=== PATIENT | male | born 1950 | race Caucasian/White ===

== ENCOUNTER 2023-03-29 16:14 | Emergency (ER) | payer OTHER, SELFPAY ==
[2023-03-29 16:21] VITALS: BP 95/60; PULSE 97; RESP 20; TEMP 36.9; O2SAT 95; BMI 18.1
--- NOTE | 2023-03-29 16:47 | XRR_ITS ---
PROCEDURE INFORMATION: Exam: XR Chest Exam date and time: 03/29/2023 4:55 PM Age: 73 years old Clinical indication: Cough and shortness of breath; Additional info: SOB TECHNIQUE: Imaging protocol: Radiologic exam of the chest. Views: 1 view. COMPARISON: No relevant prior studies available. FINDINGS: There is scarring in the right lung with superior traction of the right hilum with hilar fullness and right apical opacity. Findings are indeterminate and could be due to mass, adenopathy, consolidation, scarring, or a combination of these. Pleuroparenchymal opacity in the right base has the appearance of some parenchymal consolidation and pleural effusion. The left lung appears hyperinflated but no definite acute findings. Scarring is suspected superiorly on the left as well. Heart size is normal. No acute osseous abnormality is seen. XR/XR chest 1V portable [id number] IMPRESSION: Abnormal chest x-ray with findings described above. Comparison studies would be helpful to assess interval changes.
[2023-03-29] MEDS: ipratropium-albuterol 3 mL Neb INHALATION (16:58)
[2023-03-29 17:00] VITALS: BP 95/62; PULSE 90; PULSE 97; RESP 16; RESP 20; O2SAT 94; O2SAT 95
[2023-03-29 17:09] VITALS: PULSE 92; RESP 20; O2SAT 95
[2023-03-29 17:09] LABS: ABG PCO2 40.5 mmHg (35-45); ABG PH Result 7.43 (7.35-7.45); Arterial Blood Gas Hematocrit 34.1 % (42-52); Base Excess ABG 2.5 mmol/L (-2.0-2.0); Blood Gas Allen Test Pos; Blood Gas Operator Identificat MONRO; Blood Gas Sample Site Brachial, right; Blood Gas Sample Type Arterial; HGB O2 Sat 92.9 % (95-100); Methemoglobin 0.4 % (0.4-1.5); Oxygen Device ROOM AIR; PO2 ABG 68.8 mmHg (80.0-100.0); Total Hemoglobin 11.1 g/dL (14-18)
[2023-03-29 17:09] LABS: Basophils # 0.1 10^3/uL (0.0-0.1); Basophils % 0.6 %; Eosinophils # 0.4 10^3/uL (0.0-0.8); Eosinophils % 2.9 %; Hematocrit 41.2 % (37-53); Lymphocytes # 0.9 10^3/uL (0.8-4.8); Lymphocytes % 6.7 %; Mean Corpuscular HGB Conc 30.6 g/dL (30-55); Mean Corpuscular Hemoglobin 26.1 pg (27-33); Mean Corpuscular Volume 85.3 fl (82-101); Mean Platelet Volume 8.9 fL (7.4-10.4); Monocytes # 0.9 10^3/uL (0.2-0.9); Monocytes % 6.6 %; Neutrophils # 11.63 10^3/uL (1.8-7.7); Neutrophils % 82.3 %; Nucleated Red Blood Cells % 0 %; Platelet Count 279 10^3/cmm (157-399); Red Blood Count 4.83 10^6/uL (3.85-5.65); Red Cell Distribution Width 19.5 % (12.1-15.1); White Blood Count 14.13 10^3/uL (3.29-11.43)
[2023-03-29 17:26] LABS: Lactic Sepsis W/Reflex 1.2 mmol/L (0.5-2.2)
[2023-03-29 17:35] LABS: Anion Gap 13.9 (5-19); Blood Urea Nitrogen 14 mg/dL (8-23); Calcium 9.4 mg/dL (8.5-10.5); Carbon Dioxide 29 mmol/L (22-29); Chloride 94 mmol/L (98-107); Glucose 111 mg/dL (65-115); NT Pro B Type Natriuretic Pept 426 pg/mL (0-125); Osmolality Calculated 277 mOsm/kg (285-295); Potassium 3.9 mmol/L (3.5-5.1); Sodium 133 mmol/L (136-145)
--- NOTE | 2023-03-30 11:51 | ED_ITS ---
HPI - SOB/Dyspnea General: Chief Complaint: Shortness of Breath/Dyspnea Stated Complaint: sent per [facility]B/Cough Time Seen by Provider: 03/29/23 16:34 History of Present Illness: HPI Narrative: This patient is a 73-year-old white male who presents to the emergency department with shortness of breath. He is here with his daughter. She states that he was just recently hospitalized at [facility] on the through the of this month for pneumonia. She took him to the clinic in [place] on Monday and evidently they did a chest x-ray and thought that the pneumonia was still present and possibly worse and recommended he be evaluated. Patient states he is feeling much much better. He has not had a fever. Continues to have some mild cough and mild shortness of breath however he does have a history of COPD. He does continue to smoke. Review of Systems General: Reports: 10 or more systems reviewed and unremarkable except in HPI and below Resp: Reports: dyspnea and non-productive cough Physical Exam Const: COMMON NORMALS: no acute distress, patient oriented x3 and no limitations GENERAL APPEARANCE: cooperative and comfortable HENMT: COMMON NORMALS: normocephalic, atraumatic, Normal nasal mucous membranes and turbinates present, moist oral mucous membranes and oropharynx normal HEAD & SCALP: normal to inspection, normocephalic and atraumatic FACE & SINUS: normal facial exam NOSE: Normal nasal mucous membranes and turbinates present Eye: COMMON NORMALS: Equal, round and reactive pupils present, EOMs intact bilaterally and conjunctivae normal GENERAL EYE: appearance normal, both eyes and all related structures CONJUNCTIVA: Yes conjunctivae normal PUPIL: Yes Equal, round and reactive pupils present Neck/C-Spine: COMMON NORMALS: supple and no JVD Chest: COMMONS NORMALS: normal inspection of the chest Resp: COMMON NORMALS: normal respiratory effort AUSCULTATION: rhonchi (Mild rhonchi bilaterally.) Cardio: COMMON NORMALS: no JVD, regular rate, regular rhythm, No gallops present (Cardio), No murmurs present (Cardio) and No rub (Cardio) RATE: regular rate RHYTHM: regular rhythm GI: COMMON NORMALS: Normal to inspection, nondistended, normoactive bowel sounds present, Soft to palpation and non-tender AUSCULTATION: Yes normoactive bowel sounds PALPATION: Yes Soft to palpation : COMMON NORMALS: Yes no CVA tenderness BLADDER/KIDNEY EXAM: Yes no CVA tenderness Back/Pelvis: COMMON NORMALS: no CVA tenderness and thoracic and lumbar spine normal to inspection Extremity: COMMON NORMALS: normal to inspection Neuro: COMMON NORMALS: patient oriented x3 and CN's II-XII intact bilaterally Psych: COMMON NORMALS: mental status grossly normal, Normal thought process present and cooperative THOUGHT PROCESS: Normal thought process present Skin: COMMON NORMALS: no rashes or lesions noted, turgor normal and no rox dice GENERAL SKIN EXAM: no rashes or lesions noted and turgor normal Course Vital Signs: Vital signs: Vital Signs Temperature 98.4 F 03/29/23 16:21 Pulse Rate 92 03/29/23 17:09 Respiratory Rate 20 H 03/29/23 17:09 Blood Pressure 95/62 03/29/23 17:00 Pulse Oximetry 95 03/29/23 17:09 Oxygen Delivery Me thod Room Air 03/29/23 17:09 MDM - SOB/Dyspnea Medical Decision Making CBC revealed a white blood cell count of 14.1. BMP was normal. Lactic acid level was 1.2. BNP 426. Arterial blood gases on room air revealed a pH of 7.43 with a PCO2 of 40.5 and a PO2 of 68.8. Chest x-ray does reveal what appears to be chronic disease or infiltrate in the right upper lobe. I did review medical records from [facility] from 03/14/2023 at which time he had a CT scan of the chest. That CT scan was read as chronic cavitary lung disease with pneumonia. I do not feel the patient needs to be readmitted for this. I did place him on Levaquin 750 mg for a week. Recommended he follow-up with his primary care physician in 1 week for recheck. He was discharged with his daughter in stable condition. Lab Data 03/29/23 16:44 03/29/23 16:44 Labs/Radiology: Radiology Impressions Chest X-Ray 03/29/23 16:47 IMPRESSION: Abnormal chest x-ray with findings described above. Comparison studies would be helpful to assess interval changes. Laboratory Results WBC 14.13 10^3/uL (3.29-11.43) H 03/29/23 16:44 RBC 4.83 10^6/uL (3.85-5.65) 03/29/23 16:44 Hgb 12.60 g/dL (11.27-16.99) 03/29/23 16:44 Hct 41.2 % (37-53) 03/29/23 16:44 MCV 85.3 fl (82-101) 03/29/23 16:44 MCH 26.1 pg (27-33) L 03/29/23 16:44 MCHC 30.6 g/dL (30-55) 03/29/23 16:44 RDW 19.5 % (12.1-15.1) H 03/29/23 16:44 Plt Count 279 10^3/cmm (157-399) 03/29/23 16:44 MPV 8.9 fL (7.4-10.4) 03/29/23 16:44 Neut % (Auto) 82.3 % 03/29/23 16:44 Lymph % (Auto) 6.7 % 03/29/23 16:44 Williams % (Auto) 6.6 % 03/29/23 16:44 Eos % (Auto) 2.9 % 03/29/23 16:44 Baso % (Auto) 0.6 % 03/29/23 16:44 Neut # (Auto) 11.63 10^3/uL (1.8-7.7) H 03/29/23 16:44 Lymph # (Auto) 0.9 10^3/uL (0.8-4.8) 03/29/23 16:44 Williams # (Auto) 0.9 10^3/uL (0.2-0.9) 03/29/23 16:44 Eos # (Auto) 0.4 10^3/uL (0.0-0.8) 03/29/23 16:44 Baso # (Auto) 0.1 10^3/uL (0.0-0.1) 03/29/23 16:44 Nucleated RBC % (auto) 0 % 03/29/23 16:44 Nucleated RBCs # 0.0 /100WBC 03/29/23 16:44 Specimen Type Arterial 03/29/23 16:56 Sample Site Brachial, right 03/29/23 16:56 ABG pH 7.43 (7.35-7.45) 03/29/23 16:56 ABG pCO2 40.5 mmHg (35-45) 03/29/23 16:56 ABG pO2 68.8 mmHg (80.0-100.0) L 03/29/23 16:56 ABG HCO3 27.0 mmol/L (22-26) H 03/29/23 16:56 ABG Base Excess 2.5 mmol/L (-2.0-2.0) H 03/29/23 16:56 Tip Test Pos 03/29/23 16:56 Hematocrit 34.1 % (42-52) L 03/29/23 16:56 Hgb O2 Saturation 92.9 % (95-100) L 03/29/23 16:56 Carboxyhemoglobin 3.0 %THgb (0.4-20.1) 03/29/23 16:56 Methemoglobin 0.4 % (0.4-1.5) 03/29/23 16:56 Total Hemoglobin 11.1 g/dL (14-18) L 03/29/23 16:56 O2 Delivery Device Room air 03/29/23 16:56 Cvir Tech ID Monro 03/29/23 16:56 Sodium 133 mmol/L (136-145) L 03/29/23 16:44 Potassium 3.9 mmol/L (3.5-5.1) 03/29/23 16:44 Chloride 94 mmol/L (98-107) L 03/29/23 16:44 Carbon Dioxide 29 mmol/L (22-29) 03/29/23 16:44 Anion Gap 13.9 (5-19) 03/29/23 16:44 BUN 14 mg/dL (8-23) 03/29/23 16:44 Creatinine 0.8 mg/dL (0.7-1.2) 03/29/23 16:44 GFR Calculation Not Reportable 03/29/23 16:44 Glucose 111 mg/dL (65-115) 03/29/23 16:44 Calculated Osmolality 277 mOsm/kg (285-295) L 03/29/23 16:44 Lactic Acid 1.2 mmol/L (0.5-2.2) 03/29/23 16:44 Calcium 9.4 mg/dL (8.5-10.5) 03/29/23 16:44 NT-Pro-B Natriuret Pep 426 pg/mL (0-125) H 03/29/23 16:44 All radiology interpretation(s) finalized by discharge Discharge Plan Discharge Patient Disposition: Home Clinical Impression: Chronic lung disease Condition: Stable Prescriptions: New levofloxacin 750 mg tablet 750 mg PO DAILY 7 Days Qty: 7 0RF Discharge Orders: Discharge ED (Routine); Ordered 03/29/23 Ordered By: Santiago Kaur Coding Level of Care Code ED Ash Worker for Tiki Rivera
== END 2023-03-29 20:03 | disposition home or self-care (01) ==
PROVIDERS: Emergency Provider Emergency Medicine
DX: J98.4 Other disorders of lung (principal); J44.9 Chronic obstructive pulmonary disease, unspecified
CPT/HCPCS: 36600; 71045; 80048; 82805; 83605; 83880; 85025; 94640; 99284

== ENCOUNTER → 2023-04-25 09:50 | Outpatient (BNVA) | payer OTHER, SELFPAY | PROVIDERS: PCP Family Medicine; Visit Provider Internal Medicine Cardiovascular Disease | DX: R07.9 Chest pain, unspecified (principal); R00.0 Tachycardia, unspecified; I95.9 Hypotension, unspecified; K21.9 Gastro-esophageal reflux disease without esophagitis; J44.9 Chronic obstructive pulmonary disease, unspecified; Z72.0 Tobacco use; R94.31 Abnormal electrocardiogram [ECG] [EKG] | CPT/HCPCS: 36415; 80048; 83735; 83880; 93005; 99204 ==

== ENCOUNTER 2023-05-11 14:45 | Outpatient (CLI) | payer OTHER, MEDICARE, SELFPAY ==
--- NOTE | 2023-05-11 | CT_ITS ---
WS: [id number] CT chest wo con [id number] HISTORY: CHRONIC INFECTIOUS LUNG DISEASE TECHNIQUE: Axial imaging performed through the thorax. Coronal and sagittal reformats are submitted. All CT scans at [facility] use at least one of these dose optimization techniques: automated exposure control; mA and/or kV adjustment per patient size (includes targeted exams where dose is mat ched to clinical indication); or iterative reconstruction. CONTRAST: None DLP: 301.50 mGy COMPARISON: Chest radiograph 03/29/2023 Lungs and central airway: Markedly abnormal appearance of the lungs. Areas of advanced fibrosis with conglomerate areas of opacification and masslike densities. Most significant conglomerations are in t he RIGHT lung. There is traction bronchiectasis greatest in the RIGHT upper lobe. Additional traction bronchiectasis to a lesser extent in the RIGHT lower lobe. There are bilateral pulmonary cavitations . The largest in the RIGHT upper lobe is 2.3 x 4.8 cm. LEFT upper lobe cavitation is 1.8 x 2.0 cm. Bi apical pleural thickening and tethering. There are a few areas of opacification which are slightly sp iculated bilaterally. All of these changes are imposed on chronic centrilobular emphysema. Pleura: No effusions. There is pleural thickening greatest in the RIGHT upper lobe. Heart and pericardium: Normal size heart with no pericardial effusion. Mediastinum and du: Mediastinum is shifted to the RIGHT due to volume loss in the RIGHT thorax. The re are few lymph nodes which do not appear to be enlarged. There are additional lymph nodes which are calcified. Vessels: Moderate atherosclerosis aorta. No aneurysm. Pulmonary artery is top normal size. Chest wall and lower neck: No soft tissue masses. Upper abdomen: No adrenal mass. Splenic and hepatic granulomata. Stomach is distended with fluid. Osseous structures: No destructive bone lesion. IMPRESSION: 1. Severe areas of pulmonary fibrosis with volume loss, bilateral cavitary lesions and conglomerate m asses. Differential is extensive. Consider chronic infectious process such as TB and Mycobacterium av ium and histoplasmosis. Neoplasm is not excluded. 2. Severe centrilobular emphysema. 3. Traction bronchiectasis greatest in the RIGHT upper and RIGHT lower lobes. 4. Mild pleural thickening throughout the RIGHT thorax.
--- NOTE | 2023-05-11 15:15 | USCV_ITS ---
Malcom Bauman Age: 73 Gender: M : 1950 Exam Date: 05/11/2023 14:58 Ordering Phys: Shaila Garcia MD ([email or web address]) Technologist: Maureen Huddleston [place]am Location[place] [facility] [place] [place] Indication: sob copd BP: / HR: 110 Rhythm: Sinus Technical Quality: Very technically difficult study MEASUREMENTS (Male / Female) Normal Values 2D ECHO LV Diastolic Diameter PLAX 2.5 cm 4.2 - 5.9 / 3.9 - 5.3 cm LV Systolic Diameter PLAX 1.4 cm LV Chamber Size 2.5 cm IVS Diastolic Thickness 0.8 cm 0.6 - 1.0 / 0.6 - 0.9 cm IVS Systolic Thickness 0.9 cm LVPW Diastolic Thickness 1.0 cm 0.6 - 1.0 / 0.6 - 0.9 cm LVPW Systolic Thickness 0.9 cm RV Chamber Size 2.1 cm LVOT Diameter 2.0 cm LV Ejection Fraction 2D Teich 60.3 % LV Ejection Fraction MOD 2C 59.6 % LV Ejection Fraction 2C AL 60.6 % LA Width 3.3 cm LA Height 2.7 cm RA Width 2.2 cm RA Height 2.8 cm IVC Diameter 2.0 cm M-MODE MV E Point Septal Separation 1.1 cm DOPPLER AV Peak Velocity 99.0 cm/s LVOT Peak Velocity 55.0 cm/s AV Area Cont Eq vti 2.1 cm squared AV Area Cont Eq pk 1.8 cm squared MV Area PHT 5.4 cm squared Mitral E to A Ratio 0.8 MV E' Velocity 33.5 cm/s Mitral E to MV E' Ratio 7.4 Mitral E to LV E' Lateral Ratio 6.8 Mitral E to LV E' Septal Ratio 8.2 TR Peak Velocity 155.2 cm/s TR Peak Gradient 9.6 mmHg TR Mean Velocity 126.5 cm/s TR Mean Gradient 7.1 mmHg TR Velocity Time Integral 39.6 cm TV Peak E Velocity 103.0 cm/s Right Atrial Pressure 8.0 mmHg Pulmonary Artery Systolic Pressu 17.6 mmHg RV Acceleration Time 0.2 s RV Ejection Time 0.3 s RV AcT/ET 0.5 FINDINGS Left Ventricle Normal left ventricular cavity size. Normal left ventricular systolic function. Left ventricular ejection fraction is estimated at 55 %. No diagnostic regional wall motion abnormalities. Abnormal septal motion. Right Ventricle Normal right ventricular size and systolic function. RVSP could not be calculated due to incomplete tricuspid regurgitation velocity profile. Right Atrium Normal right atrial size. Left Atrium Normal left atrial size. Mitral Valve Structurally normal mitral valve. Aortic Valve Aortic valve not well visualized. No aortic valve stenosis. No aortic valve regurgitation. Tricuspid Valve Structurally normal tricuspid valve. Pulmonic Valve Pulmonic valve not well visualized. Pericardium Aorta Aorta not well visualized. IVC Normal IVC dimension with >50% respiratory change of the inferior vena cava. CONCLUSIONS 1. Normal left ventricular cavity size. Normal left ventricular systolic function. Left ventricular ejection fraction is estimated at 55 %. No diagnostic regional wall motion abnormalities. Abnormal septal motion. 2. No prior similar studies to compare. Shaila Garcia MD (Electronically Signed) Final Date: 17 May 2023 16:38 S
== END 2023-05-11 14:46 | disposition home or self-care (01) ==
PROVIDERS: PCP Family Medicine; Visit Provider Internal Medicine Cardiovascular Disease
DX: J84.10 Pulmonary fibrosis, unspecified (principal); R06.09 Other forms of dyspnea; J43.2 Centrilobular emphysema; J47.9 Bronchiectasis, uncomplicated; J18.9 Pneumonia, unspecified organism; B39.1 Chronic pulmonary histoplasmosis capsulati; Z72.0 Tobacco use; J98.4 Other disorders of lung; J44.9 Chronic obstructive pulmonary disease, unspecified
CPT/HCPCS: 71250; 93306